=== PATIENT | male | born 1985 | race Two or more races ===

== ENCOUNTER 2019-03-29 21:33 | Emergency (ER) | payer SELFPAY ==
[~2019-03-29] VITALS: Ht 170.2 cm; Wt 87.1 kg
[2019-03-29 21:45] VITALS: BP_SYST 135
--- NOTE | 2019-03-29 21:45 | NUR ---
Patient to ER bed 02 to gown for evaluation. Side rails up. Report given to RUBÉN Whaley.
--- NOTE | 2019-03-29 21:45 | NUR ---
Patient AOx4, ambulatory, presents to ER with complaint of right ear pain 10/10 since 2100 tonight. Patient states "something went into my ear". No other symptoms or complaints.
--- NOTE | 2019-03-29 22:02 | NUR ---
JENNIFER Nino at bedside for medical evaluation.
[2019-03-29] MEDS ORDERED: MINERAL OIL 30 ML UDC PO ONE (22:15)
[2019-03-29 23:30] VITALS: BP_SYST 132
--- NOTE | 2019-03-29 23:30 | NUR ---
Patient given written and verbal discharge instructions and verbalizes understanding. ER MD discussed with patient the results and treatment provided. Patient in stable condition. ID arm band removed. No Rx given. Patient educated on pain management and to follow up with PMD. Pain Scale 0/10. Opportunity for questions provided and answered.
== END 2019-03-29 23:30 | disposition home or self-care (01) ==
LOC: SED 21:33
DX: T16.1XXA Foreign body in right ear, initial encounter (principal); X58.XXXA Exposure to other specified factors, initial encounter; Y93.89 Activity, other specified; Y92.89 Other specified places as the place of occurrence of the external cause; Y99.8 Other external cause status
CPT/HCPCS: 99284